=== PATIENT | female | born 1995 | race Hispanic/Latino ===

== ENCOUNTER 2020-01-22 18:14 | Emergency (ER) | payer OTHER ==
[2020-01-22 18:46] LABS: Basophils # (Auto) 0.1 K/mm3 (0.0-0.1); Basophils % (Auto) 0.5 % (0.0-1.8); Eosinophils # (Auto) 0.1 K/mm3 (0.0-0.4); Eosinophils % (Auto) 0.8 % (0.0-4.3); Hematocrit 39.3 % (30.3-42.9); Hemoglobin 13.4 gm/dl (10.1-14.3); Lymphocytes # (Auto) 2.7 K/mm3 (1.2-5.4); Lymphocytes % (Auto) 16.6 % (13.4-35.0); Mean Corpuscular HGB Conc 34 % (30-34); Mean Corpuscular Volume 88 fl (79-97); Monocytes # (Auto) 1.1 K/mm3 (0.0-0.8); Monocytes % (Auto) 6.6 % (0.0-7.3); Platelet Count 263 K/mm3 (140-440); Red Blood Count 4.48 M/mm3 (3.65-5.03); Red Cell Distribution Width 13.1 % (13.2-15.2)
[2020-01-22 18:53] LABS: Amorphous Crystals,Urine Few; Bacteria,Urine 1+ /HPF (Negative); Bilirubin,Urine NEG (Negative); Blood,Urine LG (Negative); Color,Urine Yellow (Yellow); Mucus,Urine FEW /HPF; Protein,Urine <15 mg/dL mg/dL (Negative); Urobilinogen,Urine < 2.0 mg/dL (<2.0)
[2020-01-22 19:08] LABS: Alanine Aminotransferase 19 units/L (7-56); Albumin 4.1 g/dL (3.9-5); Blood Urea Nitrogen 8 mg/dL (7-17); Calcium 8.8 mg/dL (8.4-10.2); Hemolysis Index 73
[2020-01-22 19:09] LABS: BUN/Creatinine Ratio 16
--- NOTE | 2020-01-22 20:17 | Emergency Department Report ---
ED HPI - General Chief complaint: Vaginal Bleeding Stated complaint: 9WKS PREG AND BLEEDING Time Seen by Provider: 01/22/20 19:18 Source: patient Mode of arrival: Ambulatory Limitations: No Limitations - History of Present Illness Initial comments: Patient is a 24-year-old female presents emergency room with complaints of vaginal bleeding that began 2 days ago. She states that she first saw a quarter size amount of bleeding. She states that now is just very light spotting when she goes to the bathroom. She states that she has intermittent nausea which she has had throughout her . She denies any abdominal pain, vomiting, diar cathy, fever, urinary symptoms. She states that she is currently 9 weeks 6 days . She states that her OB is at my [facility]. She states her last menstrual cycle was November 12. No past medical history. No allergies to medications. She states is her first . - Related Data Allergies Allergy/AdvReac Type Severity Reaction Status Date / Time No Known Allergies Allergy Verified 01/22/20 18:15 ED Review of Systems ROS: Stated complaint: 9WKS PREG AND BLEEDING Other details as noted in HPI Comment: All other systems reviewed and negative ED Past Medical Hx - Past Medical History Previous Medical History?: No - Surgical History Past Surgical History?: No - Social History Smoking Status: Never Smoker Substance Use Type: None ED Physical Exam - General Limitations: No Limitations General appearance: alert, in no apparent distress - Head Head exam: Present: atraumatic, normocephalic - Eye Eye exam: Present: normal appearance - ENT ENT exam: Present: mucous membranes moist - Respiratory Respiratory exam: Present: normal lung sounds bilaterally. Absent: respiratory distress, wheezes, rales, rhonchi, stridor, chest wall tenderness, accessory muscle use, decreased breath sounds, prolonged expiratory - Cardiovascular Cardiovascular Exam: Present: regular rate, normal rhythm, normal heart sounds. Absent: systolic murmur, diastolic murmur, rubs, gallop - GI/Abdominal GI/Abdominal exam: Present: soft, normal bowel sounds. Absent: distended, tenderness, guarding, rebound, rigid - Neurological Exam Neurological exam: Present: alert, oriented X3 - Psychiatric Psychiatric exam: Present: normal affect, normal mood - Skin Skin exam: Present: warm, dry, intact ED Course Vital Signs 01/22/20 01/22/20 18:16 21:55 Temperature 97.9 F 98.6 F Pulse Rate 102 H 79 Respiratory 18 18 Rate Blood Pressure 139/86 Blood Pressure 128/85 [Right] O2 Sat by Pulse 99 100 Oximetry ED Medical Decision Making - Lab Data Result diagrams: 01/22/20 18:34 01/22/20 18:34 Lab Results 01/22/20 01/22/20 01/22/20 Range/Units 18:31 18:34 18:34 WBC 16.2 H (4.5-11.0) K/mm3 RBC 4.48 (3.65-5.03) M/mm3 Hgb 13.4 (10.1-14.3) gm/dl Hct 39.3 (30.3-42.9) % MCV 88 (79-97) fl MCH 30 (28-32) pg MCHC 34 (30-34) % RDW 13.1 L (13.2-15.2) % Plt Count 263 (140-440) K/mm3 Lymph % (Auto) 16.6 (13.4-35.0) % Andrew % (Auto) 6.6 (0.0-7.3) % Eos % (Auto) 0.8 (0.0-4.3) % Baso % (Auto) 0.5 (0.0-1.8) % Lymph # 2.7 (1.2-5.4) K/mm3 Andrew # 1.1 H (0.0-0.8) K/mm3 Eos # 0.1 (0.0-0.4) K/mm3 Baso # 0.1 (0.0-0.1) K/mm3 Seg Neutrophils % 75.5 H (40.0-70.0) % Seg Neutrophils # 12.2 H (1.8-7.7) K/mm3 Sodium 137 (137-145) mmol/L Potassium 3.7 (3.6-5.0) mmol/L Chloride 100.8 (98-107) mmol/L Carbon Dioxide 21 L (22-30) mmol/L Anion Gap 19 mmol/L BUN 8 (7-17) mg/dL Creatinine 0.5 L (0.6-1.2) mg/dL Estimated GFR > 60 ml/min BUN/Creatinine Ratio 16 % Glucose 108 H (65-100) mg/dL Calcium 8.8 (8.4-10.2) mg/dL Total Bilirubin 0.20 (0.1-1.2) mg/dL AST 21 (5-40) units/L ALT 19 (7-56) units/L Alkaline Phosphatase 63 (35-129) units/L Total Protein 7.2 (6.3-8.2) g/dL Albumin 4.1 (3.9-5) g/dL Albumin/Globulin Ratio 1.3 % HCG, Quant (0-4) mIU/mL Urine Color Yellow (Yellow) Urine Turbidity Hazy (Clear) Urine pH 8.0 H (5.0-7.0) Ur Specific [place] 1.013 (1.003-1.030) Urine Protein <15 mg/dl (Negative) mg/dL Urine Glucose (UA) Neg (Negative) mg/dL Urine Ketones Neg (Negative) mg/dL Urine Blood Lg (Negative) Urine Nitrite Neg (Negative) Urine Bilirubin Neg (Negative) Urine Urobilinogen < 2.0 (<2.0) mg/dL Ur Leukocyte Esterase Neg (Negative) Urine WBC (Auto) 2.0 (0.0-6.0) /HPF Urine RBC (Auto) 2.0 (0.0-6.0) /HPF U Epithel Cells (Auto) < 1.0 (0-13.0) /HPF Urine Bacteria (Auto) 1+ (Negative) /HPF Amorphous Crystals Few Urine Mucus Few /HPF Blood Type 01/22/20 01/22/20 Range/Units 18:34 18:36 WBC (4.5-11.0) K/mm3 RBC (3.65-5.03) M/mm3 Hgb (10.1-14.3) gm/dl Hct (30.3-42.9) % MCV (79-97) fl MCH (28-32) pg MCHC (30-34) % RDW (13.2-15.2) % Plt Count (140-440) K/mm3 Lymph % (Auto) (13.4-35.0) % Andrew % (Auto) (0.0-7.3) % Eos % (Auto) (0.0-4.3) % Baso % (Auto) (0.0-1.8) % Lymph # (1.2-5.4) K/mm3 Andrew # (0.0-0.8) K/mm3 Eos # (0.0-0.4) K/mm3 Baso # (0.0-0.1) K/mm3 Seg Neutrophils % (40.0-70.0) % Seg Neutrophils # (1.8-7.7) K/mm3 Sodium (137-145) mmol/L Potassium (3.6-5.0) mmol/L Chloride (98-107) mmol/L Carbon Dioxide (22-30) mmol/L Anion Gap mmol/L BUN (7-17) mg/dL Creatinine (0.6-1.2) mg/dL Estimated GFR ml/min BUN/Creatinine Ratio % Glucose (65-100) mg/dL Calcium (8.4-10.2) mg/dL Total Bilirubin (0.1-1.2) mg/dL AST (5-40) units/L ALT (7-56) units/L Alkaline Phosphatase (35-129) units/L Total Protein (6.3-8.2) g/dL Albumin (3.9-5) g/dL Albumin/Globulin Ratio % HCG, Quant 93578 H (0-4) mIU/mL Urine Color (Yellow) Urine Turbidity (Clear) Urine pH (5.0-7.0) Ur Specific [place] (1.003-1.030) Urine Protein (Negative) mg/dL Urine Glucose (UA) (Negative) mg/dL Urine Ketones (Negative) mg/dL Urine Blood (Negative) Urine Nitrite (Negative) Urine Bilirubin (Negative) Urine Urobilinogen (<2.0) mg/dL Ur Leukocyte Esterase (Negative) Urine WBC (Auto) (0.0-6.0) /HPF Urine RBC (Auto) (0.0-6.0) /HPF U Epithel Cells (Auto) (0-13.0) /HPF Urine Bacteria (Auto) (Negative) /HPF Amorphous Crystals Urine Mucus /HPF Blood Type O POSITIVE - Radiology Data Radiology results: report reviewed ULTRASOUND OBSTETRIC INDICATION / CLINICAL INFORMATION: vag bleed. TECHNIQUE: Transabdominal. COMPARISON: None available. FINDINGS: GESTATIONAL SAC: Well-defined oval shape and intrauterine in location. YOLK SAC: No significant abnormality. EMBRYO/FETUS: No significant abnormality. - [place]-Rump Length = 3.37 cm = 10 weeks, 2 day(s). - Heart Rate, beats per minute (if present) = 176 ADNEXA: No significant abnormality. FREE FLUID: None. ADDITIONAL FINDINGS: None. IMPRESSION: 1. Single, living intrauterine with estimated sonographic age of 10 weeks, 2 day(s). Signer Name: Hans Rouse MD Signed: 01/22/2020 9:34 PM Workstation Name: [id number] Transcribed By: TL Dictated By: Hans Rouse MD Electronically Authenticated By: Hans Rouse MD Signed Date/Time: 01/22/202133 DD/ 31 TD/TT: - Medical Decision Making Patient is a 24-year-old female presents emergency room with complaints of vaginal bleeding that began 2 days ago. She states that she first saw a quarter size amount of bleeding. She states that now is just very light spotting when she goes to the bathroom. She states that she has intermittent nausea which she has had throughout her . She denies any abdominal pain, vomiting, diarrhea, fever, urinary symptoms. She states that she is currently 9 weeks 6 days . She states that her OB is at my [facility]. She states her last menstrual cycle was November 12. No past medical history. No allergies to medications. She states is her first . VSS. on exam: no abd ttp, no peritoneal signs, normal bowel sounds. labs with nonspecific elevated WBC, could be secondary to , pt has no eli signs of infection. [place] [address]. pt is Rh positive. US OB: 1. Single, living intrauterine with estimated sonographic age of 10 weeks, 2 day(s). Discussed all results with patient and answered questions and patient given her ultrasound report. Discussed the possibility of threatened miscarriage with patient given that she is having spotting with but this could be a normal finding and she would need close [facility] follow-up. Advised patient that she would need to have her hCG quant repeated in the next 2 days. May take Tylenol as needed for any discomfort. Continue taking your vitamin. follow-up with your [facility] for close follow-up and repeat hCG quant in two days. today (01/22/2020) [place] [id number]. Return to emergency room immediately for any new or worsening symptoms. - Differential Diagnosis IUP, ectopic, hemorrhagic cyst, subchorionic hemorrhage, UTI, anemia Critical care attestation.: If time is entered above; I have spent that time in minutes in the direct care of this critically ill patient, excluding procedure time. ED Disposition Clinical Impression: Vaginal spotting, Threatened miscarriage Qualifiers: Weeks of gestation: 10 weeks Qualified Code(s): Z3A.10 - 10 weeks gestation of Disposition: DC- TO HOME OR SELFCARE Is pt being admited?: No Does the pt Need Aspirin: No Condition: Stable Instructions: Threatened Miscarriage (ED) Additional Instructions: May take Tylenol as needed for any discomfort. Continue taking your vitamin. follow-up with your [facility] for close follow-up and repeat hCG quant in two days. today (01/22/2020) [place] [id number]. Return to emergency room immediately for any new or worsening symptoms. Referrals: [facility]IMARY [facility] [Primary Care Provider] - 2-3 Days [facility] [Provider Group] - 2-3 Days Time of Disposition: 21:47 Print Language: CUBAN
--- NOTE | 2020-01-22 21:38 | Ultrasound Report ---
ULTRASOUND OBSTETRIC INDICATION / CLINICAL INFORMATION: vag bleed. TECHNIQUE: Transabdominal. COMPARISON: None available. FINDINGS: GESTATIONAL SAC: Well-defined oval shape and intrauterine in location. YOLK SAC: No significant abnormality. EMBRYO/FETUS: No significant abnormality. - [place]-Rump Length = 3.37 cm = 10 weeks, 2 day(s). - Heart Rate, beats per minute (if present) = 176 ADNEXA: No significant abnormality. FREE FLUID: None. ADDITIONAL FINDINGS: None. IMPRESSION: 1. Single, living intrauterine with estimated sonographic age of 10 weeks, 2 day(s). Signer Name: Hans Rouse MD Signed: 01/22/2020 9:34 PM Workstation Name: [id number]
[2020-01-22 21:55] VITALS: BP 128/85
== END 2020-01-22 21:55 | disposition home or self-care (01) ==
LOC: ED 18:14
DX: O20.0 Threatened abortion (principal); O26.891 Other specified pregnancy related conditions, first trimester; R11.0 Nausea; Z3A.09 9 weeks gestation of pregnancy
CPT/HCPCS: 36415; 76801; 80053; 81001; 84702; 85025; 86900; 86901